=== PATIENT | female | born 1975 ===

== ENCOUNTER 2022-04-08 05:49 | Day surgery (SDC) | payer MEDICARE, OTHER ==
[~2022-04-08] VITALS: Ht 175.3 cm; Wt 65.5 kg
[~2022-04-08 05:49] MED LIST: A AND D OINTM42.5 GM TP; ACETAMINOP160 MG/54 PO; ADULT WAL-100 MG/5 M GT; ALBUTEROL2.5 MG/3 M INH; ALLERGY RE12.5 MG/5 GT; ARTIFICIAL TEA1 EACH OPTH; BACLOFEN10 MG GT; CHILDREN'S ASPI81 M1 PO; CHILDREN'S100 MG/52 GT; CYMBALTA30 MG GT; DEPO-PROVE150 MG/1 M IM; DULCOLAX10 MG PR; GABAPENTIN250 MG/51 GT; ISOSOURCE 1.51000 ML PO; KEPPRA100 MG/1 M GT; KETOCONAZOLE15 GM; LAXATIVE5 MG GT; MACRODANTIN100 MG GT; MAGNESIUM CARB500 GM MISC; MELATIN3 MG GT; NYSTATIN100000 UN1 PO; NYSTATIN15 GM; RISPERDAL0.5 MG GT; TRAZODONE HCL50 MG GT; VITAMIN D310 MCG/11 PO; [UNRECOGNIZED DRUG - OTHER] GT
--- NOTE | 2022-04-08 06:24 | NUR ---
PATIENT IS ACCOMPANIED BY HER CAREGIVER, SUZANNE. SHE IS TRANSFERRED TO THE STRETCHER USING AMI LIFT. PATIENT'S BRIEF IS COMPLETELY SATURATED AND HER CLOTHING IS WET IS THE AMI SLING. BRIEF CHANGED AND GOWN PLACED. PATIENT DOES COMMUNICATE WITH YES OR NO QUESTIONS AND SIGN LANGUAGE AND CONFIRMS BEING COMFORTABLE. CAREGIVER IS AT HER BEDSIDE.
--- NOTE | 2022-04-08 08:35 | NUR ---
04/08/22 0835 Levi,Ann [id number] PT ARRIVED TO PACU WITH ORAL AIRWAY AND 10L O2 IN PLACE VIA MASK. VSS. PT NONAROUSABLE WITH UPHOLSTERY CLEANER DOING JAW THRUST TO MAINTAIN AIRWAY. HOB INCREASED SLIGHTLY AND JAW THRUST NO LONGER NEEDED.
--- NOTE | 2022-04-08 09:16 | NUR ---
CAREGIVER, SUZANNE, AT THE BEDSIDE. MOIST GAUZE USED WHILE INSTRUCTING PATIENT TO BITE DOWN. PATIENT DOES WELL WITH THAT.
--- NOTE | 2022-04-08 10:24 | NUR ---
PATIENT FOLLOWS DIRECTIONS TO BITE ON MOIST GAUZE. SHE IS STIRRING, MAKING NOISE WHILE I ATTEND TO HER. CAREGIVER REMAINS AT HER BEDSIDE.
--- NOTE | 2022-04-08 11:08 | NUR ---
PATIENT'S BRIEF IS CHANGED. NEW CLOTHING IS REPLACED. PATIENT IS TRANSFERRED TO WHEELCHAIR WITH RN, LATASHA, USING AMI LIFT. PATIENT TOLERATES THIS WELL. DISCHARGE INSTRUCTIONS ARE GIVEN TO PATIENT'S CAREGIVER, SUZANNE AND SHE VERBALIZES UNDERSTANDING. GAUZE IS SENT WITH THE PATIENT'S CAREGIVER.
== END 2022-04-08 11:05 | disposition home or self-care (01) ==
LOC: DS 05:49 → OPS 05:49 → DS 07:00 → OPS 11:05
PROVIDERS: ATTEND Dentist General Practice
PROC: 0CCXXZ2 Extirpation of Matter from Lower Tooth, All, External Approach (ICD-10-PCS; 2022-04-08)
PROC: 0CCWXZ2 Extirpation of Matter from Upper Tooth, All, External Approach (ICD-10-PCS; 2022-04-08)
PROC: 0CDWXZ0 Extraction of Upper Tooth, Single, External Approach (ICD-10-PCS; principal; 2022-04-08 07:00)
DX: K02.9 Dental caries, unspecified (principal); D61.818 Other pancytopenia; G40.909 Epilepsy, unspecified, not intractable, without status epilepticus; Z93.1 Gastrostomy status
CPT/HCPCS: 36415; 80048; 84703; 85025; J7121